=== PATIENT | female | born 1980 | race Two or more races ===

== ENCOUNTER 2024-06-26 09:00 | Emergency (ER) | payer OTHER ==
[~2024-06-26] VITALS: Ht 172.7 cm; Wt 70.3 kg
[2024-06-26 09:31] VITALS: BP 116/78; O2SAT 100
[2024-06-26] MEDS ORDERED: ORPHENADRINE CITRATE 30 MG/ML AMPUL IM ONE (13:00)
[2024-06-26] MEDS ORDERED: KETOROLAC TROMETHAMINE 30 MG VIAL IM ONE (13:00)
[2024-06-26] MEDS ORDERED: KETOROLAC TROMETHAMINE 60 MG VIAL IM ONE (13:02)
[2024-06-26] MEDS ORDERED: ORPHENADRINE CITRATE 30 MG/ML AMPUL ONE (13:02)
[2024-06-26] MEDS ORDERED: CELEBREX200MG PO (13:17)
== END 2024-06-26 14:09 | disposition home or self-care (01) ==
LOC: ER 09:02
DX: S43.492A Other sprain of left shoulder joint, initial encounter (principal); X58.XXXA Exposure to other specified factors, initial encounter; Y93.89 Activity, other specified; Y92.89 Other specified places as the place of occurrence of the external cause; Y99.9 Unspecified external cause status